=== PATIENT | male | born 2000 | race Caucasian/White ===

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

== ENCOUNTER 2022-07-08 11:36 | Day surgery (SDC) | payer OTHER ==
--- NOTE | 2022-07-06 10:30 | P.HPOR ---
History of Present Illness H&P Date: 07/06/22 Chief Complaint: Right middle finger amputation, right index finger hook nail deformity Subjective: This is a 21 year old male that presents today for follow up evaluation regarding a right hand injury that occurred on 02/06/22 that occurred at work when the tips of his fingers were cut off. He was seen and treated by Dr. Rosario and [facility] where revision amputations were performed. He is referred to me for post operative follow up do to location of his house and distance away from [facility]ou for follow up. He states he has been back to work and has been working on ROM of the fingers with hand therapy and has now completed therapy. He can now make a full fist. He has noticed half of the nail on the index finger at the very tip is now starting to grown downward and becoming painful. He also notices the right middle finger is still very "puffy" and appears to have a double layer of skin over the dorsal aspect of the finger with a small pit/hole on the side of the finger and a firm prominence dog ear present. Physical Examination: RUE: AIN/PIN/Radial/Ulnar/Median motor intact. Radial/Ulnar/Median SILT. 2+/4 Radial/Ulnar pulses palpated. 5/5 APB, 5/5 FDI. Healed revision amputation sites at the ring and middle finger with adequate soft tissue coverage. FDS intact to both digits. No evidence of Lumbrical plus fingers. Hook nail deformity present at ulnar have have nail plate on index finger. Right middle finger revision amputation healed with large skin step off and firm dog ear prominent on ulnar tip of digit with small pit present at junction of dorsal skin and dorsally flapped volar skin. 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 His surgical sites are healed and he has gained full ROM. He states the appearance and overall feel of the right middle finger is bothersome due to the thickness of the overlapping dorsal tissue and the prominent dog ear present now that his amputations are healed. He states he would like to proceed with revision amputation to smooth out and debulk the redundant skin from the flap that was taken from volar tissue and reflected well over the dorsal skin. He would also l margaux to go forward with right index finger hook nail deformity correction vs nailbed ablation for the index finger. Risks and benefits of surgery including bleeding, infection, damage to surrounding tissue, need for further surgery, residual numbness were discussed and the patient wished to go forward with surgery. I predict 3 weeks off post operatively from work until wounds are healed. -Christian Fernández DO Orthopedic Hand/Upper Extremity Surgeon Past Medical History Past Medical History: No Reported History History of Any Multi-Drug Resistant Organisms: None Reported Past Surgical History: No Surgical Hx Reported Past Psychological History: No Psychological Hx Reported Smoking Status: Vaper Past Alcohol Use History: None Reported Past Drug Use History: Marijuana Medications and Allergies Allergies Allergy/AdvReac Type Severity Reaction Status Date / Time No Known Allergies Allergy Verified 02/05/22 06:28 Physical Examination Osteopathic Statement: *. No significant issues noted on an osteopathic structural exam other than those noted in the History and Physical/Consult.
[~2022-07-08 11:36] MED LIST: DEXAMETHASONE SOD PHOSPHATE 4 MG/ML 1 ML VIAL IV ONE; HYDROmorphone 0.5 MG/0.5 ML SYRINGE IVP PRN; LACTATED RINGERS 1,000 ML IV SCH; LIDOCAINE 1% (10MG/ML) FOR IV START INTRADERMA PRN; ONDANSETRON 4 MG/2 ML VIAL IVP ONE
[2022-07-08] MEDS ORDERED: PROPOFOL 10 MG/ML 20 ML VIAL IV ONE (13:10)
[2022-07-08] MEDS ORDERED: fentaNYL (PF) 50 MCG/ML 2 ML AMP ONE (13:10)
[2022-07-08] MEDS ORDERED: KETAMINE 10 MG/ML 20 ML VIAL ONE (13:10)
[2022-07-08] MEDS ORDERED: MIDAZOLAM 2 MG/2 ML VIAL ONE (13:10)
[2022-07-08] MEDS ORDERED: LIDOCAINE 1% INJ 10MG/ML (10 ML MDV) SQ ONE ×2 (13:12→13:19)
[2022-07-08] MEDS ORDERED: BUPIVACAINE (PF) 0.5% 30 ML VIAL SQ ONE ×2 (13:12→13:19)
[2022-07-08] MEDS ORDERED: BACITRACIN ZINC 500 UNIT/GM OINT 28.4 GM TUBE TOPICAL ONE (13:38)
[2022-07-08 14:07] VITALS: RESP 18; TEMP 97.3
[2022-07-08 15:02] VITALS: PULSE 99
[2022-07-08 15:30] VITALS: BP 132/67
--- NOTE | 2022-07-08 15:38 | P.OP ---
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 Patient sustained a traumatic amputation to his right middle finger in February 2022 and underwent primary revision amputation with Dr. Rosario at [facility]. He has subsequently developed a large symptomatic dog ear skin flap that has become bothersome when using the finger. He presents today for a revision of his right middle finger amputation with local advancement flap due to continued symptoms. Patient was initially scheduled for right ring finger hook nail deformity correction but since last office visit has wished to pursue non operative treatment. Risks and benefits of surgery were discussed with the patient including bleeding, damage to surrounding tissue, infection, need for further surgery as well as risks of anesthesia including pulmonary embolism and even and the patient wished to proceed with surgical intervention. The patient was seen in the pre-operative area by myself. Consent and H&P were completed and updated. The correct extremity was marked in the pre-operative area by myself and all other questions were answered. Operative Narrative: The patient was brought to the operating room by the department of anesthesia. They remained on the portable stretcher and a rolling hand table was brought to the side of the operative extremity. Pre-operative time out was performed indicating the correct patient, procedure and laterality. All in the room agreed. Pre-operative antibiotics were given prior to skin incision. The patient was then drifted off to sleep by the department of anesthesia. Digital block was performed with 8cc's of 0.5% Lidocaine and 1% lidocaine in a 50:50 mixture. A nonsterile tourniquet was then applied to the operative extremity and the right upper extremity was then prepped and draped in normal sterile fashion. The operative extremity was the exsanguinated with an esmarch bandage and the tourniquet was inflated to 250mmHg. The prominent dog ear skin flap located on the ulnar aspect of the digit was elipsed out with a 15 blade scalpel, there was a small ossific fragment located in the dog ear as appreciated on imaging. The uneven transition/step off of the glabourous skin of palmar tissue and overlapping dorsal skin was also elipsed out with 15 blade scalpel and wound edges were approximated in a loose tension free fashion with multiple 4-0 nylon sutures. The dog ear was no longer present and had a more contoured tip and appearance to the ulnar tip of the finger. Dressing was applied with adaptic, bacitracin, 4x4s and a coban. Tourniquet was let down.The patient was then woken by the department of anesthesia and transferred to PACU in stable condition. Christian Fernández D.O. Orthopedic Hand/Upper Extremity Surgeon
== END 2022-07-08 15:32 | disposition home or self-care (01) ==
LOC: OR 11:36
PROVIDERS: ATTEND Orthopaedic Surgery Hand Surgery
DX: S68.622A Partial traumatic transphalangeal amputation of right middle finger, initial encounter (principal); L60.2 Onychogryphosis; F12.90 Cannabis use, unspecified, uncomplicated; X58.XXXA Exposure to other specified factors, initial encounter
CPT/HCPCS: 26952; J2250; J1100; J2405; J0690; J3010; J2001; J2704